=== PATIENT | male | born 1965 | race American Indian/Alaskan Native ===

== ENCOUNTER 2019-04-08 14:25 | Emergency (ER) | payer SELFPAY ==
[2019-04-08 15:34] LABS: Basophils % (Auto) 0.5 % (0.0-1.8); Eosinophils # (Auto) 0.1 K/mm3 (0.0-0.4); Eosinophils % (Auto) 1.1 % (0.0-4.3); Hematocrit 45.1 % (35.5-45.6); Lymphocytes % (Auto) 25.3 % (13.4-35.0); Mean Corpuscular HGB Conc 33 % (32-34); Mean Corpuscular Volume 90 fl (84-94); Monocytes # (Auto) 0.8 K/mm3 (0.0-0.8); Monocytes % (Auto) 9.8 % (0.0-7.3); Platelet Count 258 K/mm3 (140-440); Red Cell Distribution Width 13.7 % (13.2-15.2)
[2019-04-08 15:44] LABS: Bilirubin,Urine NEG (Negative); Blood,Urine MOD (Negative); Color,Urine Straw (Yellow); Mucus,Urine FEW /HPF; Protein,Urine <15 mg/dL mg/dL (Negative); Urobilinogen,Urine < 2.0 mg/dL (<2.0)
[2019-04-08 15:59] LABS: Albumin 4.2 g/dL (3.9-5); Calcium 9.3 mg/dL (8.4-10.2)
[2019-04-08] MEDS ORDERED: ONDANSETRON 4 MG/2 ML INJ IV ONE (19:04)
[2019-04-08] MEDS ORDERED: traMADol 50 MG TAB PO ONE (19:04)
[2019-04-08] MEDS ORDERED: SODIUM CHLORIDE 0.9% 1000 ML 1,000 ML IV ONE ×2 (19:04→22:44)
--- NOTE | 2019-04-08 19:43 | Emergency Department Report ---
ED Abdominal Pain HPI - General Chief Complaint: Abdominal Pain Stated Complaint: ABD PAIN/NAUSEA Time Seen by Provider: 04/08/19 19:02 Source: patient Mode of arrival: Ambulatory Limitations: No Limitations - History of Present Illness Initial Comments: 54-year-old -Turkmen male with no past medical history presents to the emergency room for left sided flank pain that radiates to the pelvic times one day with nausea. Patient denies any vomiting. Patient denies any hematuria dysuria. Patient reports that the pain is constant crampy and sharp. Patient states that the pain is worse with movement and with eating. Patient does admit to chills but denies any fever. Does not have a primary care provider in no known drug allergies MD Complaint: flank pain Onset/Timin -: days(s) Location: suprapubic, L flank Radiation: suprapubic Severity scale (0 -10): 10 Quality: cramping, sharp Consistency: constant Worsens With: movement Associated Symptoms: nausea. denies: vomiting, diarrhea, fever, dysuria, hematemesis, hematochezia, melena, hematuria - Related Data Previous Rx's Medication Instructions Recorded Last Taken Type Oxycodone HCl/Acetaminophen 1 each PO Q6HR PRN #12 tablet 04/09/19 Unknown Rx [Percocet 7.5/325 mg] Tamsulosin [Flomax] 0.4 mg PO QDAY #5 capsule 04/09/19 Unknown Rx Allergies Allergy/AdvReac Type Severity Reaction Status Date / Time No Known Allergies Allergy Verified 04/09/19 01:07 ED Review of Systems ROS: Stated complaint: ABD PAIN/NAUSEA Other details as noted in HPI Comment: All other systems reviewed and negative ED Past Medical Hx - Past Medical History Previous Medical History?: No - Surgical History Past Surgical History?: No - Social History Smoking Status: Never Smoker Substance Use Type: None - Medications Home Medications: Home Medications Medication Instructions Recorded Confirmed Last Taken Type Oxycodone HCl/Acetaminophen 1 each PO Q6HR PRN #12 tablet 04/09/19 Unknown Rx [Percocet 7.5/325 mg] Tamsulosin [Flomax] 0.4 mg PO QDAY #5 capsule 04/09/19 Unknown Rx ED Physical Exam - General Limitations: No Limitations General appearance: alert, in no apparent distress - Head Head exam: Present: atraumatic, normocephalic - Eye Eye exam: Present: EOMI - ENT ENT exam: Present: mucous membranes moist - Neck Neck exam: Present: normal inspection - Respiratory Respiratory exam: Present: normal lung sounds bilaterally. Absent: respiratory distress - Back Exam Back exam: Present: CVA tenderness (L) - Neurological Exam Neurological exam: Present: alert, oriented X3 - Psychiatric Psychiatric exam: Present: normal affect, normal mood - Skin Skin exam: Present: warm, dry, intact, normal color. Absent: rash ED Course Vital Signs 04/08/19 04/08/19 04/08/19 14:39 19:44 22:00 Temperature 97.8 F Pulse Rate 61 Respiratory 19 16 16 Rate Blood Pressure 169/100 O2 Sat by Pulse 100 Oximetry 04/09/19 01:31 Temperature Pulse Rate Respiratory 16 Rate Blood Pressure O2 Sat by Pulse Oximetry ED Medical Decision Making - Lab Data Result diagrams: 04/08/19 15:19 04/08/19 15:19 - Radiology Data Radiology results: report reviewed Patient: KAMI AJ MR#: [id number] : 1965 Acct:[id number] Age/Sex: 54 / M ADM Date: 04/08/19 Loc: ED Attending Dr: Ordering Physician: NATALIIA VILLAFUERTE Date of Service: 04/08/19 Procedure(s): CT abdomen pelvis wo con Accession Number(s): [id number] cc: NATALIIA VILLAFUERTE CT abdomen pelvis wo con INDICATION: left flank pain that radiates to pelvic. TECHNIQUE: All CT scans at this location are performed using the following dose modulation technique: Automated exposure control. CONTRAST: None. COMPARISON: None available. CT ABDOMEN: Evaluation the parenchymal organs demonstrates a 2 mm nonobstructing stone at the midpole the right kidney. The left kidney demonstrates moderate distention the collecting system. Fluid tracks adjacent to the ureteropelvic junction and ureter. The remaining parenchymal organs are unremarkable. Negative for abdominal mass, fluid or inflammation. The bowel is not dilated or thickened. CT PELVIS: The left ureter is distended to the level of a 3 mm stone at the ureterovesical junction. Negative for pelvic mass, fluid collection or adenopathy. IMPRESSION: 1. 3 mm stone left ureterovesical junction with high-grade obstruction. 2. 2 mm nonobstructing right calyceal stone. Signer Name: Horace Comer MD Signed: 04/08/2019 9:06 PM Workstation Name: [id number] Transcribed By: ES Dictated By: Horace Comer MD Electronically Authenticated By: Horace Comer MD Signed Date/Time: 04/08/192105 DD/ 00 TD/TT: - Medical Decision Making 54-year-old -Turkmen male with no past medical history presents to the emergency room for left sided flank pain that radiates to the pelvic times one day with nausea. Patient denies any vomiting. Patient denies any hematuria dysuria. Patient reports that the pain is constant crampy and sharp. Patient states that the pain is worse with movement and with eating. Patient does admit to chills but denies any fever. Does not have a primary care provider in no known drug allergies. Patient reports his pain is improved. Patient be discharged, Flomax Percocet. Patient would not be sent home on ibuprofen since he has had mild elevation of his creatinine of 1.7. Spoke with patient about using a strainer to collect his kidney stone. N discussed the patient to take with him when he goes the urologist. Patient was discussed that he needs to follow-up with the primary c are provider as well as her urologist. Patient verbalized understanding. Critical care attestation.: If time is entered above; I have spent that time in minutes in the direct care of this critically ill patient, excluding procedure time. ED Disposition Clinical Impression: Renal calculus, left, Acute kidney injury Disposition: - TO HOME OR SELFCARE Is pt being admited?: No Does the pt Need Aspirin: No Condition: Stable Instructions: Kidney Stones (ED), How to Strain Your Urine (ED) Additional Instructions: Please take medication as prescribed. Increase her fluid intake. Follow-up with Dr. Medina urologist and a primary care provider. Prescriptions: Tamsulosin [Flomax] 0.4 mg PO QDAY #5 capsule Oxycodone HCl/Acetaminophen [Percocet 7.5/325 mg] 1 each PO Q6HR PRN #12 tablet PRN Reason: Pain Referrals: STEVE LUZ MD [Primary Care Provider] - 3-5 Days BRITNI MEDINA MD [Staff Physician] - 3-5 Days DAVID LEDEZMA MD [Staff Physician] - 3-5 Days Forms: Work/School Release Form(ED)
--- NOTE | 2019-04-08 21:11 | Cat Scan Report ---
CT abdomen pelvis wo con INDICATION: left flank pain that radiates to pelvic. TECHNIQUE: All CT scans at this location are performed using the following dose modulation technique: Automated exposure control. CONTRAST: None. COMPARISON: None available. CT ABDOMEN: Evaluation the parenchymal organs demonstrates a 2 mm nonobstructing stone at the midpole the right kidney. The left kidney demonstrates moderate distention the collecting system. Fluid trac ks adjacent to the ureteropelvic junction and ureter. The remaining parenchymal organs are unremarkab le. Negative for abdominal mass, fluid or inflammation. The bowel is not dilated or thickened. CT PELVIS: The left ureter is distended to the level of a 3 mm stone at the ureterovesical junction. Negative for pelvic mass, fluid collection or adenopathy. IMPRESSION: 1. 3 mm stone left ureterovesical junction with high-grade obstruction. 2. 2 mm nonobstructing right calyceal stone. Signer Name: Horace Comer MD Signed: 04/08/2019 9:06 PM Workstation Name: [id number]
[2019-04-08] MEDS ORDERED: HYDROmorphone 1 MG/1 ML INJ IV ONE ×2 (21:34→22:44)
[2019-04-09] MEDS ORDERED: predniSONE 20 MG TAB PO ONE (00:58)
[2019-04-09] MEDS ORDERED: TAMSULOSIN 0.4 MG CAP PO ONE (00:58)
[2019-04-09 04:07] VITALS: BP 158/86
== END 2019-04-09 03:45 | disposition home or self-care (01) ==
LOC: ED 14:25
DX: N20.0 Calculus of kidney (principal); N17.9 Acute kidney failure, unspecified; Z79.899 Other long term (current) drug therapy
CPT/HCPCS: 36415; 74176; 80053; 81001; 82962; 85025; 96374; 96375; 96376; 99284; J1170; J2405; J7030; J7512